=== PATIENT | female | born 1955 | race African-American/Black ===

== ENCOUNTER → 2020-10-12 | Day surgery (SDC) | payer SELFPAY ==
[~2020-10-12] MED LIST: OR PHACO EYE KIT ONE; PREDNISOLONE ACE5 M1 OS; PREOP PHACO EYE KIT ONE
[2020-10-12 13:20] VITALS: BP 141/77
== END | disposition home or self-care (01) ==
LOC: OR 10:41
PROVIDERS: ATTEND Ophthalmology
DX: H25.12 Age-related nuclear cataract, left eye (principal); Z01.812 Encounter for preprocedural laboratory examination; Z20.828 Contact with and (suspected) exposure to other viral communicable diseases; Z68.31 Body mass index [BMI] 31.0-31.9, adult
CPT/HCPCS: 66984; U0002; V2632

== ENCOUNTER → 2020-10-24 | Day surgery (SDC) | payer SELFPAY ==
[~2020-10-24] MED LIST changes: +FENTANYL CITRATE/PF 100MCG/2 ML INJ ONE; +MIDAZOLAM HCL 5 MG/ML VIAL ONE
[2020-10-24 15:25] VITALS: BP 137/95
== END | disposition home or self-care (01) ==
LOC: OR 12:46
PROVIDERS: ATTEND Ophthalmology
DX: H25.11 Age-related nuclear cataract, right eye (principal); Z01.812 Encounter for preprocedural laboratory examination; Z20.828 Contact with and (suspected) exposure to other viral communicable diseases; Z68.31 Body mass index [BMI] 31.0-31.9, adult
CPT/HCPCS: 66984; J2250; J3010; U0002; V2632